=== PATIENT | male | born 1960 | race Caucasian/White ===

== ENCOUNTER 2017-09-05 12:39 | Inpatient (IN) | payer MEDICAID ==
[~2017-09-05] VITALS: Ht 167.6 cm; Wt 106.8 kg
[~2017-09-05 12:39] MED LIST: BUSP10TA23 PO; HYDR-308 PO; LEVO25TA9 PO; LISI-622 PO; TRAM50TA4 PO; TRAZ-147 PO
[2017-09-05 12:58] LABS: GLUCOSE,POINT OF CARE 100 MG/DL (70-110)
[2017-09-05 13:40] LABS: BASOPHILS % (AUTO) 0.2 % (0.0-2.0); EOSINOPHILS % (AUTO) 1.1 % (1.0-6.0); HEMATOCRIT 42.2 % (41-53); LYMPHOCYTES # (AUTO) 1.7 K/uL (1.0-4.8); LYMPHOCYTES % (AUTO) 18.1 % (22.0-44.0); MEAN CORPUSCULAR HEMOGLOBIN 31.6 pg (26.0-34.0); MEAN CORPUSCULAR HGB CONC 35.5 G/dL (31.0-37.0); MEAN CORPUSCULAR VOLUME 89 fL (80-100); MONOCYTES # (AUTO) 1.1 K/uL (0.1-1.0); MONOCYTES % (AUTO) 11.9 % (2.0-9.0); NEUTROPHILS # (AUTO) 6.4 K/uL (1.8-7.7); NEUTROPHILS % (AUTO) 68.7 % (40.0-70.0); PLATELET COUNT (AUTO) 245 K/uL (150-450); RED BLOOD CELL COUNT(AUTO) 4.73 MIL/uL (4.50-5.90); RED CELL DISTRIBUTION WIDTH 13.4 % (11.5-14.5)
[2017-09-05] MEDS ORDERED: ZOLPIDEM TARTRATE 10 MG TABLET PO PRN (13:45)
[2017-09-05] MEDS ORDERED: LORazepam 2 MG TABLET PO PRN (13:45)
[2017-09-05] MEDS ORDERED: KETOROLAC TROMETHAMINE 60 MG/2 ML VIAL IM ONE (13:45)
[2017-09-05] MEDS ORDERED: HALOPERIDOL 5 MG TABLET PO PRN (13:45)
[2017-09-05 13:50] LABS: ANION GAP 8 mmol/L (8-16); CALCIUM, TOTAL 8.8 mg/dL (8.8-10.5); CARBON DIOXIDE 27 mmol/L (22-29); CHLORIDE 101 mmol/L (98-107); GLOMERULAR FILTR. RATE CALC > 60 mL/min (>60); GLUCOSE,RANDOM 99 mg/dL (70-110); POTASSIUM 4.5 mmol/L (3.5-5.1); SODIUM SERUM 136 mmol/L (136-145); UREA NITROGEN, BLOOD 16 mg/dL (7-18)
[2017-09-05 13:56] LABS: ALANINE AMINOTRANSFERASE 44 U/L (12-78); ALBUMIN 3.8 g/dL (3.4-5.0); ALKALINE PHOSPHATASE 98 U/L (46-116); ASPARTATE AMINOTRANSFERASE 28 U/L (15-37); BILIRUBIN,TOTAL 0.3 mg/dL (0.1-1.0); TOTAL PROTEIN, SERUM 7.9 g/dL (6.4-8.2)
[2017-09-05 17:23] LABS: AMPHET/METH SCREEN,URINE NEGATIVE (NEGATIVE); BARBITURATE SCREEN, URINE NEGATIVE (NEGATIVE); BENZODIAZEPINES SCREEN,URINE NEGATIVE (NEGATIVE); CANNABINOID SCREEN,URINE POSITIVE (NEGATIVE); COCAINE SCREEN,URINE NEGATIVE (NEGATIVE); METHADONE SCREEN, URINE NEGATIVE (NEGATIVE); OPIATE SCREEN,URINE NEGATIVE (NEGATIVE); PHENCYCLIDINE SCREEN,URINE NEGATIVE (NEGATIVE)
[2017-09-05 19:19] VITALS: BP 141/81
[2017-09-05] MEDS ORDERED: PNEUMOCOCCAL VACCINE POLYVALENT 0.5 ML VIAL [PPSV23] IM ONE (19:45)
[2017-09-05] MEDS: TraZODone HCL 100 MG TABLET PO SCH (20:44)
[2017-09-05] MEDS: IBUPROFEN 600 MG TABLET PO PRN (20:56)
[2017-09-06 01:15] VITALS: BP 117/75
[2017-09-06] MEDS: LEVOTHYROXINE SODIUM 50 MCG TABLET PO SCH (06:43)
[2017-09-06 08:38] VITALS: BP 125/79
[2017-09-06] MEDS: BusPIRone HCL 15 MG TABLET PO SCH ×3 (08:38→17:05)
[2017-09-06] MEDS: CITALOPRAM HYDROBROMIDE 20 MG TABLET PO SCH (08:38)
[2017-09-06] MEDS: LISINOPRIL 20 MG TABLET PO SCH (08:38)
[2017-09-06 09:05] LABS: CHOL/HDL RATIO 5.4 (4.2-7.3)
[2017-09-06] MEDS: IBUPROFEN 600 MG TABLET PO PRN (09:09)
[2017-09-06] MEDS ORDERED: BENZOCAINE/MENTHOL LOZENGE MM PRN (09:30)
[2017-09-06] MEDS ORDERED: PETROLATUM,WHITE 71 GM JELLY TP PRN (09:30)
[2017-09-06] MEDS ORDERED: MAG HYDROX/AL HYDROX/SIMETH ES 30 ML SUSPENSION UDCUP PO PRN (09:30)
[2017-09-06] MEDS ORDERED: BACITRACIN 28.4 GM OINTMENT TP PRN (09:30)
[2017-09-06] MEDS ORDERED: MAGNESIUM HYDROXIDE SUSPENSION 30 ML UDCUP PO PRN (09:30)
[2017-09-06] MEDS ORDERED: IBUPROFEN 600 MG TABLET PO PRN (09:30)
[2017-09-06] MEDS ORDERED: ALBUTEROL SULFATE HFA 90 MCG/PUFF 8 GM INHALER IH PRN (09:30)
[2017-09-06] MEDS ORDERED: ONDANSETRON HCL 4 MG TABLET PO PRN (09:30)
[2017-09-06] MEDS ORDERED: ACETAMINOPHEN 325 MG TABLET PO PRN (09:30)
[2017-09-06] MEDS ORDERED: LOPERAMIDE HCL 2 MG CAPSULE PO PRN (09:30)
[2017-09-06] MEDS ORDERED: CloNIDine HCL 0.1 MG TABLET PO PRN (09:30)
[2017-09-06] MEDS: TraMADol HCL 50 MG TABLET PO PRN ×2 (12:37→20:08)
[2017-09-06] MEDS: LIDOCAINE HCL 5% TRANSDERMAL PATCH TD SCH (12:37)
[2017-09-06 16:02] VITALS: BP 118/87
[2017-09-06 20:08] VITALS: BP 134/86
[2017-09-06] MEDS: TraZODone HCL 100 MG TABLET PO SCH (20:08)
[2017-09-06] MEDS: -LIDODERM PATCH NOTE- MISC SCH (20:08)
[2017-09-07 00:37] VITALS: BP 120/70
[2017-09-07] MEDS: LEVOTHYROXINE SODIUM 50 MCG TABLET PO SCH (06:59)
[2017-09-07] MEDS: OMEGA-3/DHA/EPA/FISH OIL 1,000 MG CAPSULE PO SCH (08:21)
[2017-09-07] MEDS: BusPIRone HCL 15 MG TABLET PO SCH ×3 (08:21→16:43)
[2017-09-07] MEDS: LISINOPRIL 20 MG TABLET PO SCH (08:22)
[2017-09-07] MEDS: CITALOPRAM HYDROBROMIDE 20 MG TABLET PO SCH (08:22)
[2017-09-07] MEDS: LIDOCAINE HCL 5% TRANSDERMAL PATCH TD SCH (08:26)
[2017-09-07 08:49] VITALS: BP 124/81
[2017-09-07 16:05] VITALS: BP 120/76
[2017-09-07] MEDS ORDERED: GuaiFENesin/D-METHORPHAN [SUGAR-FREE] 200-20MG/10 ML SYRUP UDCUP PO PRN (18:00)
[2017-09-07] MEDS: TraMADol HCL 50 MG TABLET PO PRN (18:14)
[2017-09-07] MEDS: TraZODone HCL 100 MG TABLET PO SCH (20:40)
[2017-09-07] MEDS: -LIDODERM PATCH NOTE- MISC SCH (20:40)
[2017-09-08] MEDS: LEVOTHYROXINE SODIUM 50 MCG TABLET PO SCH (05:49)
[2017-09-08 06:08] VITALS: BP 127/82
[2017-09-08 08:09] VITALS: BP 118/74
[2017-09-08] MEDS: LISINOPRIL 20 MG TABLET PO SCH (08:45)
[2017-09-08] MEDS: TraMADol HCL 50 MG TABLET PO PRN (08:46)
[2017-09-08] MEDS: CITALOPRAM HYDROBROMIDE 20 MG TABLET PO SCH (08:46)
[2017-09-08] MEDS: OMEGA-3/DHA/EPA/FISH OIL 1,000 MG CAPSULE PO SCH (08:46)
[2017-09-08] MEDS: BusPIRone HCL 15 MG TABLET PO SCH ×2 (08:46→12:03)
[2017-09-08] MEDS: LIDOCAINE HCL 5% TRANSDERMAL PATCH TD SCH (08:46)
[2017-09-08] MEDS ORDERED: BUSP15 PO (12:40)
[2017-09-08] MEDS ORDERED: LISI-662 PO (12:40)
[2017-09-08] MEDS ORDERED: OMEG-135 PO (12:40)
[2017-09-08] MEDS ORDERED: CITA-106 PO (12:40)
[2017-09-08] MEDS ORDERED: LEVO50 PO (12:40)
[2017-09-08] MEDS ORDERED: TRAZ-147 PO (12:40)
[2017-09-08] MEDS ORDERED: LIDO700A15 TD (12:52)
== END 2017-09-08 17:55 | disposition home or self-care (01) | DRG 751 ==
LOC: EMS 12:44 → B2S 16:07
PROVIDERS: ADMIT Psychiatry & Neurology Psychiatry; ATTEND Psychiatry & Neurology Psychiatry
DX: F33.2 Major depressive disorder, recurrent severe without psychotic features (principal); R45.851 Suicidal ideations; E11.9 Type 2 diabetes mellitus without complications; I10 Essential (primary) hypertension; G89.29 Other chronic pain; M54.9 Dorsalgia, unspecified; M54.30 Sciatica, unspecified side; F41.9 Anxiety disorder, unspecified; R45.87 Impulsiveness; E78.5 Hyperlipidemia, unspecified; E66.9 Obesity, unspecified; G40.909 Epilepsy, unspecified, not intractable, without status epilepticus; G47.00 Insomnia, unspecified; F12.90 Cannabis use, unspecified, uncomplicated; Z79.899 Other long term (current) drug therapy; Z68.38 Body mass index [BMI] 38.0-38.9, adult
CPT/HCPCS: 90471; 96372; 99285; G0480

== ENCOUNTER 2019-03-16 13:30 | Emergency (ER) | payer MEDICAID ==
[~2019-03-16] VITALS: Ht 170.2 cm; Wt 109.1 kg
[~2019-03-16 13:30] MED LIST changes: -BUSP10TA23 PO; +BUSP15 PO; +CITA-106 PO; -HYDR-308 PO; -LEVO25TA9 PO; +LEVO50 PO; +LIDO700A15 TD; -LISI-622 PO; +LISI-662 PO; +OMEG-135 PO; -TRAM50TA4 PO; -TRAZ-147 PO; +TRAZ-220 PO
[2019-03-16] MEDS ORDERED: CLIN300C3 PO (15:17)
[2019-03-16] MEDS ORDERED: RANI150T7 PO (15:17)
[2019-03-16] MEDS ORDERED: ASPI-1182 PO (15:17)
[2019-03-16] MEDS ORDERED: BUSP10TA23 PO (15:17)
[2019-03-16] MEDS ORDERED: IBUP-2070 PO (15:17)
[2019-03-16] MEDS ORDERED: DULO60CA44 PO (15:17)
[2019-03-16] MEDS ORDERED: METF-960 PO (15:17)
[2019-03-16] MEDS ORDERED: GABA-531 PO (15:17)
[2019-03-16] MEDS ORDERED: LIDOCAINE 5% TRANSDERMAL PATCH TD ONE (16:00)
[2019-03-16] MEDS ORDERED: KETOROLAC TROMETHAMINE 30 MG/ML VIAL IM ONE (16:00)
[2019-03-16 16:21] LABS: BASOPHILS % (AUTO) 0.3 % (0.0-2.0); EOSINOPHILS % (AUTO) 0.8 % (1.0-6.0); HEMOGLOBIN 12.5 g/dL (13.5-17.5); LYMPHOCYTES # (AUTO) 1.2 K/uL (1.0-4.8); LYMPHOCYTES % (AUTO) 12.2 % (22.0-44.0); MEAN CORPUSCULAR HGB CONC 34.7 G/dL (31.0-37.0); MEAN CORPUSCULAR VOLUME 92 fL (80-100); MONOCYTES # (AUTO) 0.8 K/uL (0.1-1.0); MONOCYTES % (AUTO) 7.9 % (2.0-9.0); NEUTROPHILS # (AUTO) 7.8 K/uL (1.8-7.7); NEUTROPHILS % (AUTO) 78.8 % (40.0-70.0); PLATELET COUNT (AUTO) 301 K/uL (150-450); RED CELL DISTRIBUTION WIDTH 13.3 % (11.5-14.5)
[2019-03-16 16:43] LABS: ANION GAP 8 mmol/L (8-16); CALCIUM, TOTAL 8.7 mg/dL (8.8-10.5); CARBON DIOXIDE 27 mmol/L (22-29); CHLORIDE 103 mmol/L (98-107); CREATININE 1.23 mg/dL (0.60-1.30); GLOMERULAR FILTR. RATE CALC 60 mL/min (>60); GLUCOSE,RANDOM 105 mg/dL (70-110); POTASSIUM 3.9 mmol/L (3.5-5.1); SODIUM SERUM 138 mmol/L (136-145); UREA NITROGEN, BLOOD 25 mg/dL (7-18)
[2019-03-16 16:48] LABS: ALANINE AMINOTRANSFERASE 29 U/L (12-78); ALBUMIN 3.7 g/dL (3.4-5.0); ALKALINE PHOSPHATASE 38 U/L (46-116); ASPARTATE AMINOTRANSFERASE 23 U/L (15-37); BILIRUBIN,TOTAL 0.2 mg/dL (0.1-1.0); TOTAL PROTEIN, SERUM 6.9 g/dL (6.4-8.2)
[2019-03-16 17:13] VITALS: BP 126/70
== END 2019-03-16 17:31 | disposition home or self-care (01) ==
LOC: EMS 13:32
DX: M54.5 Low back pain (principal); E11.9 Type 2 diabetes mellitus without complications; F17.210 Nicotine dependence, cigarettes, uncomplicated
CPT/HCPCS: 36415; 80053; 85025; 96372; 99283; G0480; J1885

== ENCOUNTER 2022-06-14 11:29 | Inpatient (IN) | payer MEDICAID ==
[~2022-06-14] VITALS: Ht 167.6 cm; Wt 91.2 kg
[~2022-06-14 11:29] MED LIST changes: +ASPI-1444 PO; +BUSP10TA23 PO; -BUSP15 PO; -CITA-106 PO; +CITA-144 PO; +CLIN300C58 PO; +DULO-113 PO; +GABA-1181 PO; +IBUP-1492 PO; -LISI-662 PO; +LISI-894 PO; +METF-1211 PO; +RANI150T7 PO; -TRAZ-220 PO; +TRAZ-257 PO
[2022-06-14 13:51] LABS: BASOPHILS % (AUTO) 0.3 % (0.0-2.0); EOSINOPHILS % (AUTO) 0.2 % (1.0-6.0); HEMATOCRIT 45.9 % (41-53); HEMOGLOBIN 15.4 g/dL (13.5-17.5); LYMPHOCYTES # (AUTO) 1.3 K/uL (1.0-4.8); MEAN CORPUSCULAR HEMOGLOBIN 31.4 pg (26.0-34.0); MEAN CORPUSCULAR HGB CONC 33.6 G/dL (31.0-37.0); MEAN CORPUSCULAR VOLUME 93 fL (80-100); NEUTROPHILS # (AUTO) 6.9 K/uL (1.8-7.7); NEUTROPHILS % (AUTO) 74.5 % (40.0-70.0); PLATELET COUNT (AUTO) 256 K/uL (150-450); RED BLOOD CELL COUNT(AUTO) 4.91 MIL/uL (4.50-5.90); RED CELL DISTRIBUTION WIDTH 13.2 % (11.5-14.5)
[2022-06-14 14:00] LABS: ANION GAP 10 mmol/L (8-16); CALCIUM, TOTAL 9.3 mg/dL (8.8-10.5); CARBON DIOXIDE 25 mmol/L (22-29); CHLORIDE 99 mmol/L (98-107); CREATININE 0.82 mg/dL (0.60-1.30); GLOMERULAR FILTR. RATE CALC > 60 mL/min (>60); GLUCOSE,RANDOM 112 mg/dL (70-110); POTASSIUM 4.3 mmol/L (3.5-5.1); SODIUM SERUM 134 mmol/L (136-145); UREA NITROGEN, BLOOD 11 mg/dL (7-18)
[2022-06-14 14:06] LABS: ALANINE AMINOTRANSFERASE 25 U/L (12-78); ALBUMIN 4.4 g/dL (3.4-5.0); ALKALINE PHOSPHATASE 76 U/L (46-116); ASPARTATE AMINOTRANSFERASE 22 U/L (15-37); BILIRUBIN,TOTAL 0.3 mg/dL (0.1-1.0); TOTAL PROTEIN, SERUM 7.9 g/dL (6.4-8.2)
[2022-06-14 16:43] LABS: COVID AG,FIA SOURCE NASAL SWAB
[2022-06-14] MEDS ORDERED: ZOLPIDEM TARTRATE 10 MG TABLET PO PRN (17:45)
[2022-06-14] MEDS ORDERED: LIDOCAINE 5% TRANSDERMAL PATCH TD ONE (17:45)
[2022-06-14] MEDS ORDERED: HYDROCODONE/ACETAMINOPHEN 10-325 MG TABLET PO ONE (17:45)
[2022-06-14] MEDS: QUEtiapine FUMARATE 100 MG TABLET PO PRN (17:59)
[2022-06-14] MEDS: LORazepam 2 MG TABLET PO PRN (17:59)
[2022-06-14 18:24] LABS: APPEARANCE,URINE CLEAR (CLEAR); BILIRUBIN,URINE NEGATIVE (NEGATIVE); GLUCOSE, URINE (UA) NEGATIVE (NEGATIVE); KETONES,URINE NEGATIVE (NEGATIVE); LEUKOCYTE ESTERASE ,URINE NEGATIVE (NEGATIVE); NITRATE,URINE NEGATIVE (NEGATIVE); OCCULT BLOOD,URINE NEGATIVE (NEGATIVE); PROTEIN,URINE NEGATIVE (NEGATIVE); SPECIFIC GRAVITIY, URINE 1.007 (1.003-1.030); UROBILINOGEN,URINE <=1.0 mg/dL (<=1.0)
[2022-06-14 18:45] LABS: AMPHET/METH SCREEN,URINE NEGATIVE (NEGATIVE); BARBITURATE SCREEN, URINE NEGATIVE (NEGATIVE); BENZODIAZEPINES SCREEN,URINE NEGATIVE (NEGATIVE); CANNABINOID SCREEN,URINE POSITIVE (NEGATIVE); COCAINE SCREEN,URINE NEGATIVE (NEGATIVE); METHADONE SCREEN, URINE NEGATIVE (NEGATIVE); OPIATE SCREEN,URINE POSITIVE (NEGATIVE); PHENCYCLIDINE SCREEN,URINE NEGATIVE (NEGATIVE)
[2022-06-14 20:30] VITALS: BP 130/77
[2022-06-14] MEDS ORDERED: MAG HYDROX/AL HYDROX/SIMETH ES 30 ML SUSPENSION UDCUP PO PRN (21:45)
[2022-06-14] MEDS ORDERED: MAGNESIUM HYDROXIDE SUSPENSION 30 ML UDCUP PO PRN (21:45)
[2022-06-14] MEDS ORDERED: IBUPROFEN 400 MG TABLET PO PRN (21:45)
[2022-06-14] MEDS ORDERED: ONDANSETRON HCL 4 MG TABLET PO PRN (21:45)
[2022-06-14] MEDS ORDERED: LOPERAMIDE HCL 2 MG CAPSULE PO PRN (21:45)
[2022-06-14] MEDS ORDERED: ACETAMINOPHEN 325 MG TABLET PO PRN (21:45)
[2022-06-14] MEDS ORDERED: GuaiFENesin/D-METHORPHAN [SUGAR-FREE] 200-20MG/10 ML SYRUP UDCUP PO PRN (21:45)
[2022-06-14] MEDS ORDERED: HYDROCODONE/ACETAMINOPHEN 10-325 MG TABLET PO PRN (21:45)
[2022-06-14] MEDS ORDERED: DOCUSATE SODIUM 100 MG CAPSULE PO PRN (21:45)
[2022-06-14] MEDS ORDERED: CloNIDine HCL 0.1 MG TABLET PO PRN (21:45)
[2022-06-14] MEDS ORDERED: NICOTINE 14 MG/24 HOUR PATCH TD PRN (21:45)
[2022-06-14] MEDS ORDERED: ALBUTEROL SULFATE HFA 90 MCG/PUFF 8 GM INHALER IH PRN (21:45)
[2022-06-14] MEDS ORDERED: PETROLATUM,WHITE 28 GM JELLY TP PRN (21:45)
[2022-06-15] MEDS ORDERED: INFLUENZA VIRUS VACCINE QVS 2022-23 (6MO+)/PF 60 MCG/0.5 ML SYRINGE IM. ONE (06:15)
[2022-06-15] MEDS: MetFORMIN HCL 500 MG TABLET PO SCH (06:39)
[2022-06-15] MEDS: LEVOTHYROXINE SODIUM 50 MCG TABLET PO SCH (06:39)
[2022-06-15 08:35] LABS: BASOPHILS % (AUTO) 0.1 % (0.0-2.0); EOSINOPHILS % (AUTO) 0.9 % (1.0-6.0); HEMATOCRIT 44.9 % (41-53); HEMOGLOBIN 15.5 g/dL (13.5-17.5); LYMPHOCYTES # (AUTO) 1.8 K/uL (1.0-4.8); LYMPHOCYTES % (AUTO) 20.9 % (22.0-44.0); MEAN CORPUSCULAR HEMOGLOBIN 32.2 pg (26.0-34.0); MEAN CORPUSCULAR HGB CONC 34.6 G/dL (31.0-37.0); MEAN CORPUSCULAR VOLUME 93 fL (80-100); MONOCYTES % (AUTO) 11.1 % (2.0-9.0); NEUTROPHILS # (AUTO) 5.7 K/uL (1.8-7.7); PLATELET COUNT (AUTO) 261 K/uL (150-450); RED BLOOD CELL COUNT(AUTO) 4.82 MIL/uL (4.50-5.90); RED CELL DISTRIBUTION WIDTH 13.4 % (11.5-14.5)
[2022-06-15 08:45] VITALS: BP 154/106
[2022-06-15] MEDS: GABAPENTIN 300 MG CAPSULE PO SCH ×3 (11:10→17:42)
[2022-06-15] MEDS: LISINOPRIL 20 MG TABLET PO SCH (11:10)
[2022-06-15] MEDS: ASPIRIN 81 MG DR TABLET PO SCH (11:10)
[2022-06-15] MEDS ORDERED: GABA-529 PO (12:17)
[2022-06-15] MEDS ORDERED: HYDR-4069 PO (12:17)
[2022-06-15] MEDS ORDERED: SILD50TA54 PO (12:17)
[2022-06-15] MEDS ORDERED: SACU1TAB PO (12:17)
[2022-06-15] MEDS ORDERED: ATOR10TA69 PO (12:17)
[2022-06-15] MEDS ORDERED: BACL5TAB PO (12:17)
[2022-06-15] MEDS: CITALOPRAM HYDROBROMIDE 20 MG TABLET PO SCH (14:46)
[2022-06-15 16:16] VITALS: BP 127/72
[2022-06-15] MEDS: DULoxetine HCL 60 MG CAPSULE PO SCH (17:42)
[2022-06-15] MEDS: BusPIRone HCL 10 MG TABLET PO SCH (17:42)
[2022-06-15 20:48] VITALS: BP 149/55
[2022-06-15] MEDS: QUEtiapine FUMARATE 100 MG TABLET PO PRN (21:09)
[2022-06-15] MEDS: TraZODone HCL 100 MG TABLET PO SCH (21:09)
[2022-06-16] MEDS: LEVOTHYROXINE SODIUM 50 MCG TABLET PO SCH (06:35)
[2022-06-16] MEDS: MetFORMIN HCL 500 MG TABLET PO SCH (06:36)
[2022-06-16] MEDS: TAMSULOSIN HCL 0.4 MG CAPSULE PO SCH (08:21)
[2022-06-16] MEDS: ASPIRIN 81 MG DR TABLET PO SCH (08:21)
[2022-06-16] MEDS: GABAPENTIN 300 MG CAPSULE PO SCH ×3 (08:21→16:09)
[2022-06-16] MEDS: CITALOPRAM HYDROBROMIDE 20 MG TABLET PO SCH (08:21)
[2022-06-16] MEDS: LISINOPRIL 20 MG TABLET PO SCH (08:21)
[2022-06-16] MEDS: DULoxetine HCL 60 MG CAPSULE PO SCH ×2 (08:21→16:09)
[2022-06-16] MEDS: BusPIRone HCL 10 MG TABLET PO SCH ×2 (08:21→16:09)
[2022-06-16 08:28] VITALS: BP 160/100
[2022-06-16 16:47] VITALS: BP 108/62
[2022-06-16] MEDS: LORazepam 2 MG TABLET PO PRN (17:41)
[2022-06-16] MEDS: AmLODIPine BESYLATE 5 MG TABLET PO SCH (17:45)
[2022-06-16 18:47] LABS: ANION GAP 9 mmol/L (8-16); CALCIUM, TOTAL 9.1 mg/dL (8.8-10.5); CARBON DIOXIDE 25 mmol/L (22-29); CHLORIDE 96 mmol/L (98-107); CREATININE 0.93 mg/dL (0.60-1.30); GLOMERULAR FILTR. RATE CALC > 60 mL/min (>60); GLUCOSE,RANDOM 129 mg/dL (70-110); POTASSIUM 4.1 mmol/L (3.5-5.1); SODIUM SERUM 130 mmol/L (136-145); UREA NITROGEN, BLOOD 18 mg/dL (7-18)
[2022-06-16 18:53] LABS: ALANINE AMINOTRANSFERASE 23 U/L (12-78); ALBUMIN 4.1 g/dL (3.4-5.0); ALKALINE PHOSPHATASE 78 U/L (46-116); ASPARTATE AMINOTRANSFERASE 22 U/L (15-37); BILIRUBIN,TOTAL 0.5 mg/dL (0.1-1.0); TOTAL PROTEIN, SERUM 7.5 g/dL (6.4-8.2)
[2022-06-16 21:00] VITALS: BP 130/85
[2022-06-16] MEDS: TraZODone HCL 100 MG TABLET PO SCH (21:21)
[2022-06-16] MEDS: QUEtiapine FUMARATE 100 MG TABLET PO PRN (21:21)
[2022-06-17] MEDS: MetFORMIN HCL 500 MG TABLET PO SCH (06:35)
[2022-06-17] MEDS: LEVOTHYROXINE SODIUM 50 MCG TABLET PO SCH (06:35)
[2022-06-17] MEDS: TAMSULOSIN HCL 0.4 MG CAPSULE PO SCH (09:15)
[2022-06-17] MEDS: ASPIRIN 81 MG DR TABLET PO SCH (09:15)
[2022-06-17] MEDS: CITALOPRAM HYDROBROMIDE 20 MG TABLET PO SCH (09:15)
[2022-06-17] MEDS: GABAPENTIN 300 MG CAPSULE PO SCH ×3 (09:15→16:13)
[2022-06-17] MEDS: AmLODIPine BESYLATE 5 MG TABLET PO SCH (09:15)
[2022-06-17] MEDS: LISINOPRIL 20 MG TABLET PO SCH (09:15)
[2022-06-17] MEDS: DULoxetine HCL 60 MG CAPSULE PO SCH ×2 (09:15→16:13)
[2022-06-17] MEDS: BusPIRone HCL 10 MG TABLET PO SCH ×2 (09:16→16:14)
[2022-06-17 09:55] VITALS: BP 139/88
[2022-06-17 16:42] VITALS: BP 156/98
[2022-06-17] MEDS: TraZODone HCL 100 MG TABLET PO SCH (20:52)
[2022-06-17 21:45] VITALS: BP 100/100
[2022-06-18] MEDS: MetFORMIN HCL 500 MG TABLET PO SCH (06:36)
[2022-06-18] MEDS: LEVOTHYROXINE SODIUM 50 MCG TABLET PO SCH (06:36)
[2022-06-18 08:55] VITALS: BP 148/91
[2022-06-18] MEDS ORDERED: LEVO50 PO (10:19)
[2022-06-18] MEDS ORDERED: LISI-894 PO (10:19)
[2022-06-18] MEDS ORDERED: GABA-1181 PO (10:19)
[2022-06-18] MEDS ORDERED: METF-1211 PO (10:19)
[2022-06-18] MEDS ORDERED: AMLO-257 PO (10:19)
[2022-06-18] MEDS ORDERED: BUSP10TA23 PO (10:19)
[2022-06-18] MEDS ORDERED: DULO-113 PO (10:19)
[2022-06-18] MEDS ORDERED: TRAZ-257 PO (10:19)
[2022-06-18] MEDS ORDERED: TAMS-13 PO (10:19)
[2022-06-18] MEDS ORDERED: CITA-144 PO (10:19)
[2022-06-18] MEDS ORDERED: ASPI-1444 PO (10:19)
[2022-06-18] MEDS: ASPIRIN 81 MG DR TABLET PO SCH (10:35)
[2022-06-18] MEDS: CITALOPRAM HYDROBROMIDE 20 MG TABLET PO SCH (10:35)
[2022-06-18] MEDS: BusPIRone HCL 10 MG TABLET PO SCH (10:35)
[2022-06-18] MEDS: GABAPENTIN 300 MG CAPSULE PO SCH (10:35)
[2022-06-18] MEDS: LISINOPRIL 20 MG TABLET PO SCH (10:35)
[2022-06-18] MEDS: DULoxetine HCL 60 MG CAPSULE PO SCH (10:35)
[2022-06-18] MEDS: AmLODIPine BESYLATE 5 MG TABLET PO SCH (10:35)
[2022-06-18] MEDS: TAMSULOSIN HCL 0.4 MG CAPSULE PO SCH (10:35)
== END 2022-06-18 15:29 | disposition home or self-care (01) | DRG 751 ==
LOC: EMS 11:38 → 3EI 18:59
PROVIDERS: ADMIT Psychiatry & Neurology Psychiatry; ATTEND Psychiatry & Neurology Psychiatry
DX: F33.2 Major depressive disorder, recurrent severe without psychotic features (principal); E11.9 Type 2 diabetes mellitus without complications; R45.851 Suicidal ideations; Z20.822 Contact with and (suspected) exposure to COVID-19; E03.9 Hypothyroidism, unspecified; E78.5 Hyperlipidemia, unspecified; F12.10 Cannabis abuse, uncomplicated; F41.9 Anxiety disorder, unspecified; G40.909 Epilepsy, unspecified, not intractable, without status epilepticus; G47.00 Insomnia, unspecified; G89.29 Other chronic pain; I10 Essential (primary) hypertension; M54.30 Sciatica, unspecified side; Z79.899 Other long term (current) drug therapy; Z91.14 Patient's other noncompliance with medication regimen; Z98.1 Arthrodesis status; Z79.82 Long term (current) use of aspirin; Z71.51 Drug abuse counseling and surveillance of drug abuser
CPT/HCPCS: 80053; 80307; 81003; 84484; 85025; G0480